=== PATIENT | female | born 1950 | race Two or more races ===

== ENCOUNTER 2024-02-19 11:38 | Emergency (ER) | payer OTHER ==
[2024-02-19 11:50] VITALS: BP 123/68; PULSE 74; RESP 19; TEMP 97.8; BMI 24.9
== END 2024-02-19 12:56 | disposition home or self-care (01) ==
LOC: JERFT 11:38
DX: H66.013 Acute suppurative otitis media with spontaneous rupture of ear drum, bilateral (principal); R09.81 Nasal congestion; H92.03 Otalgia, bilateral
CPT/HCPCS: 99283-25